=== PATIENT | female | born 1990 | race Caucasian/White ===

== ENCOUNTER 2024-05-02 17:43 | Emergency (ER) | payer BC, SELFPAY ==
[2024-05-02 17:44] VITALS: BP 126/89
--- NOTE | 2024-05-02 18:02 | ED.GENMED ---
History of Present Illness
General
Chief Complaint: Abdominal Symptoms
Source: patient, records and family
Exam Limitations: none
Time Seen by Provider: 05/02/24 17:52
Nursing documentation reviewed up to this point in time: agreed with
Travel History
Have you had any contact with someone who has COVID-19?: No
Do you have any symptoms of coronavirus? Fever > 100 degrees, chills, cough, shortness of breath, sore throat, loss of taste or smell, muscle aches, or headache?: No
History of Present Illness
History of Present Illness:
Patient is a 34-year-old female who presents to the emergency department complaining of nausea vomiting since last night approximately 30 times as well as liquidy diarrhea all day. Patient feels weak and dehydrated. Patient had temperature of
99.4. Patient went to her primary care physician and was referred to the emergency department for dehydration and the fact that she was also tachycardic. Patient has been on prednisone and amoxicillin for the past 2 weeks for root canal in 6 days.
Last month the patient was in [place]. No one else at home is ill. Patient did have the wrap from wall while last night. Patient has diffuse abdominal pain. Patient's period is due in 5 days. Patient denies any symptoms.
Past History
Past History
ED Past Medical History: Arrthythmia (SVT) and Psychiatric (Anxiety)
ED Past Surgical History: None
Social History
Tobacco: Non-smoker
Alcohol: Occasional
Personal: Single
Living: with family
Family History
Family History: Early CAD
Review of Systems
Review of Systems
All Other Systems: ROS reviewed and negative except as documented in HPI and ROS
Constitutional: Reports fever, fatigue and chills
EENT: Reports no symptoms
Respiratory: Reports no symptoms
Cardiac: Reports palpitations
ABD/GI: Reports abdominal pain, nausea, vomiting, diarrhea and anorexia; Denies bloody stools or black stools
: Reports no symptoms
Musculoskeletal: Reports no symptoms
Skin: Reports no symptoms
Neurological: Reports no symptoms
Hematologic/Lymphatic: Reports no symptoms
Phy Exam
Physical Exam
Physical Exam:
Physical Exam
General: mild distress, alert and appropriate, well nourished, dry mucous membranes
HENT: Normocephalic, supple with no lymphadenopathy, no thyromegaly
Eyes: Clear sclera, conjuctiva without injection
Heart: Regular rhythm and tachycardic rate. No S3, S4. No murmur. No NVD
Lungs: No respiratory distress, no stridor, lung sounds clear and equal bilaterally
Abdomen: Soft, mild to moderate diffuse tenderness without guarding or rebound, no organomegaly, no CVA tenderness, BS good
Neuro: Alert and oriented x 3, CN II - XII intact, no motor focality, no cerebellar dysfunction
Skin: no rash
Psychiatric: well kept. interactive and cooperative. Mildly anxious
Extremities: No edema, cyanosis, tenderness, Good and equal peripheral pulses.
Course
Orders/Labs/Results
Orders:
Orders
05/02/24 18:01
0.9% Sodium Chloride 1000 ml [Nss] 1,000 ml IV BOLUS
HYDROmorphone [Dilaudid] 0.5 mg IV NOW STA
Ondansetron Injectable [Zofran] 4 mg IV NOW STA
05/02/24 18:02
Test Result ONCE
05/02/24 18:27
Complete Blood Count/With Diff Urgent
Comprehensive Metabolic Panel Urgent
HCG, Serum Qualitative Screen Urgent
Abnormal Lab Results
05/02/24
18:27
MCH 32.0 H pg
(27.0-31.0)
Absolute Neuts (auto) 6.8 H 10^3/uL
(1.4-6.5)
Absolute Lymphs (auto) 0.9 L 10^3/uL
(1.2-3.4)
Neutrophils % 81.1 H %
(42.2-75.2)
Lymphocytes % 10.7 L %
(20.5-51.1)
Glucose 105 H mg/dl
(70-99)
Total Bilirubin 3.2 H mg/dl
(0.2-1.3)
05/02/24 18:27
05/02/24 18:27
Vital Signs
Initial and Last Documented VS:
Initial Vital Signs
Temp Pulse Resp BP Pulse Ox
98.9 F 123 20 126/89 99
05/02/24 17:44 05/02/24 17:44 05/02/24 17:44 05/02/24 17:44 05/02/24 17:44
Last Documented Vital Signs
Temp Pulse Resp BP Pulse Ox
98.9 F 88 20 116/75 100
05/02/24 17:44 05/02/24 19:15 05/02/24 17:44 05/02/24 19:00 05/02/24 19:00
*Radiology
Radiology exam reviewed: other (na)
*Pulse Oximetry
Patient hypoxic: no
*EKG
Interpreted by ED Provider?: NA
*Coal Handler Interpretation
Rate: Coal Handler- N/A
*Critical Care Note
Total Time (30-74mins, 75-104mins- exclusive of procedures): Not Applicable
Update Note
Update Note:
Patient feeling better. Patient still with vague abdominal discomfort however able to eat and drink. Patient will be discharged and will need follow-up and a recheck of her bilirubin.
ED Attending Note
-
Portions of this chart may have been created with voice recognition software.� Occasional wrong word or��sound alike� substitutions may have occurred due to the inherent limitations of voice recognition software.
Discharge Plan
Departure
Patient Disposition: Home (Routine Discharge)
Date of Disposition: 05/02/24
Time of Disposition: 19:33
Patient with high blood pressure during this ER visit?: No
Condition: Fair
Covid-19: Not Applicable
Discharge Problem:
Acute gastroenteritis, Dehydration
Instructions: Dehydration, Adult (DC), [place] Diet, Nausea and Vomiting, Adult (DC)
Prescriptions:
New
ondansetron 8 mg tablet,disintegrating
8 mg PO TID PRN (Reason: nausea and vomiting) Qty: 30 0RF
oxycodone 5 mg tablet
5 mg PO Q4H PRN (Reason: Pain) Qty: 14 0RF
Referrals:
NONE,* [Family Provider] -
Activity Restrictions/Additional Instructions:
You may use Pedialyte or similar fluids to stay well-hydrated. This is prior to take another 24 to 48 hours to really turn around. I would avoid Advil, ibuprofen, Aleve. Acetaminophen 650 mg to 1000 mg every 6 hours for mild to moderate pain.
Interventions
Interventions:
*Risk Screen - Suicide Last Done: 05/02/24 18:35
*General Assessment Last Done: 05/02/24 18:35
*Neglect/Abuse Screening Last Done: 05/02/24 18:35
ED- Fall Risk Assessment Last Done: 05/02/24 18:35
*ED COVID-19 Vaccine History Last Done: 05/02/24 17:44
XD-Elkqxl-Mlvobjwvtm Assessment Last Done: 05/02/24 18:35
Discharge Date and Time
Print Language: MALAY
[2024-05-02] MEDS: ZOFRAN 4 MG IV (18:24)
[2024-05-02] MEDS: DILAUDID 0.5 MG IV (18:24)
[2024-05-02] MEDS: NSS 1000 IV (18:24)
[2024-05-02 18:29] VITALS: BP 111/75
[2024-05-02 18:35] VITALS: BMI 25.6
[2024-05-02 18:37] LABS: % Basophils 0.2 % (0-2); % Eosinophils 0.2 % (0-6); % Immature Granulocytes 0.2 % (0-0.5); % Lymphocytes 10.7 % (20.5-51.1); % Monocytes 7.6 % (1.7-9.3); % Neutrophils 81.1 % (42.2-75.2); Absolute Lymphocytes 0.9 10^3/uL (1.2-3.4); Absolute Monocytes 0.6 10^3/uL (0.1-0.6); Absolute Neutrophils 6.8 10^3/uL (1.4-6.5); Hematocrit 38.5 % (37.0-47.0); Mean Corp Hgb Conc. 36.4 g/dL (33.0-37.0); Mean Corpuscular Volume 87.9 fL (81.0-99.0); Mean Platelet Volume 9.8 fL (7.4-10.4); Nucleated Red Blood Cells % 0 %; Platelet Count 178 10^3/uL (130-400); Red Blood Cell Count 4.38 10^6/uL (4.20-5.40); Red Cell Dist. Width 12.2 % (11.5-14.5); White Blood Cell Count 8.3 10^3/uL (4.8-10.8)
[2024-05-02 18:52] LABS: HCG, Serum Qualitative Screen Negative
[2024-05-02 18:57] LABS: ALT (SGPT) 15 U/L (0-35); AST (SGOT) 20 U/L (14-36); Albumin 4.2 g/dl (3.5-5.0); Alkaline Phosphatase 47 U/L (38-126); Blood Urea Nitrogen 14 mg/dl (7-17); Calcium 9.2 mg/dl (8.4-10.2); Carbon Dioxide 22 mmol/L (22-30); Chloride 104 mmol/L (98-107); Estimated Creatinine Clearance 115 ml/min; Glucose 105 mg/dl (70-99); Potassium 3.8 mmol/L (3.5-5.1); Sodium 135 mmol/L (135-145); Total Bilirubin 3.2 mg/dl (0.2-1.3); Total Protein 6.7 g/dl (6.3-8.2); eGFR > 60.00
[2024-05-02 19:00] VITALS: BP 116/75
[2024-05-02] MEDS: ZOFRAN ODT (ORALLY DISINTEGRATING) 4 MG PO (19:49)
== END 2024-05-02 20:02 | disposition home or self-care (01) ==
LOC: EMR 17:43
PROVIDERS: EMERGENCY PHYSICIAN Emergency Medicine
DX: K52.9 Noninfective gastroenteritis and colitis, unspecified (principal); E86.0 Dehydration; Z82.49 Family history of ischemic heart disease and other diseases of the circulatory system
CPT/HCPCS: 99283; 96374; 96375; 96361; 80053; 84703; 85025

== ENCOUNTER → 2024-06-20 14:56 | Outpatient (REF) | payer OTHER, SELFPAY | LOC: HWRAD 14:56 | PROVIDERS: ATTENDING PHYSICIAN Specialist; FAMILY PHYSICIAN Family Medicine | DX: R51.9 Headache, unspecified (principal) | CPT/HCPCS: 70470; Q9967 ==

== ENCOUNTER 2024-10-31 19:30 | Emergency (ER) | payer OTHER, SELFPAY ==
[2024-10-31 19:45] VITALS: BP 152/92
--- NOTE | 2024-10-31 19:53 | ED.GENMED ---
ED Provider Triage
<Yaritza García PA-C - Last Filed: 10/31/24 20:01>
-
Patient seen by provider in Triage?: Seen in Triage
Attestation: A medical screening examination has been initiated by a qualified medical provider. Based on the assessment performed at this time, it has been determined that an emergent medical condition may exist and the patient has been informed
that further medical evaluation and possible additional diagnostic testing may be needed.
HPI: 34yoF here with L flank pain radiating to LLQ x several days. Currently 5 weeks . No SOB or pleuritic pain. No vaginal bleeding or urinary symptoms.
GENERAL: Alert , in no apparent distress
EYE: No visual abnormalities.
NECK: Trachea midline
ENT: No visible abnormalities.
LUNGS: No acute respiratory distress
NEUROLOGICAL: Alert and oriented
SKIN: Skin intact. No visible changes.
MUSCULOSKELETAL: Moving extremities normally
PSYCH: Normal and appropriate interaction.
This is a medical evaluation conducted in person to initiate diagnostic evaluation and provide initial therapeutics. Please see further documentation by the treating clinician.
CBC, CMP, quantitative HCG, UA, and renal/pelvic ultrasound.
History of Present Illness
<Yaritza García PA-C - Last Filed: 10/31/24 20:01>
General
Chief Complaint: Abdominal Pain
Time Seen by Provider: 10/31/24 20:50
<Michelle Miranda NP - Last Filed: 11/01/24 01:21>
General
Source: patient
Exam Limitations: none
Nursing documentation reviewed up to this point in time: agreed with
History of Present Illness
History of Present Illness:
34-year-old female with no significant past medical history 0 under the care of a fertility clinic with IUI, states she is 5 weeks and developed left flank pain that radiates into her left lower quadrant initially off and on for the
past 2 days but last night it became constant. She denies vaginal bleeding or discharge. She states pain is now 5/10. She has had 'very dull cramping' across her lower abdomen.
Past History
<Yaritza García PA-C - Last Filed: 10/31/24 20:01>
Past History
ED Past Medical History: Arrthythmia (SVT) and Psychiatric (Anxiety)
ED Past Surgical History: None
Social History
Tobacco: Non-smoker
Alcohol: Occasional
Personal: Single
Living: with family
Family History
Family History: Early CAD
Review of Systems
<Michelle Miranda AUDITING CONTROL CLERK - Last Filed: 11/01/24 01:21>
Review of Systems
Allergies reviewed?: Yes
All Other Systems: ROS reviewed and negative except as documented in HPI and ROS
Constitutional: Denies fever or chills
Respiratory: Denies trouble breathing
Cardiac: Denies chest pain
ABD/GI: Reports abdominal pain; Denies nausea, vomiting, diarrhea or anorexia
: Reports flank pain (Left); Denies dysuria or difficulty voiding
Musculoskeletal: Reports no symptoms
Skin: Reports no symptoms
Neurological: Reports no symptoms
Phy Exam
<Michelle Miranda, AUDITING CONTROL CLERK - Last Filed: 11/01/24 01:21>
Physical Exam
Physical Exam:
GENERAL: No acute distress. A&Ox3.
CONSTITUTIONAL: Afebrile.
EYES: Clear, conjunctivae normal
ENMT: moist mucus membranes, Pharynx nl
RESPIRATORY: Regular respirations, nonlabored, lungs clear.
CARDIOVASCULAR: Regular rate and rhythm, no murmurs, no rubs.
GI: Soft, nontender, normal BS. Mild tenderness left flank to percussion, mild tenderness LLQ
MUSCULOSKELETAL: Moves with ease. Well perfused.
SKIN: Warm, dry, pink
PSYCH: Normal mood and affect. Well kept, interactive and appropriate
NEUROLOGIC: Awake, alert and oriented. No focal neurological deficits
Course
<Yaritza García PA-C - Last Filed: 10/31/24 20:01>
Orders/Labs/Results
Orders:
Orders
10/31/24 19:55
US W Transvaginal Urgent
Reason For Exam: LLQ pain, 5 weeks
US Renal With Bladder Urgent
Comment:
Reason For Exam: L flank pain
10/31/24 20:02
Complete Blood Count/With Diff Urgent
Comprehensive Metabolic Panel Urgent
HCG, Beta Quantitative [Beta HCG Quantitative] Urgent
Is this a screen?: No
Urinalysis Reflex To Culture Urgent
Date Specimen was Collected: 10/31/24
Time Specimen was Collected: 19:57
Abnormal Lab Results
10/31/24
20:02
MCH 32.0 H pg
(27.0-31.0)
Absolute Lymphs (auto) 3.6 H 10^3/uL
(1.2-3.4)
Absolute Monos (auto) 0.8 H 10^3/uL
(0.1-0.6)
Glucose 102 H mg/dl
(70-99)
Total Bilirubin 1.5 H mg/dl
(0.2-1.3)
Urine Ketones 2+ A
(Negative)
10/31/24 20:02
10/31/24 20:02
Vital Signs
Initial and Last Documented VS:
Initial Vital Signs
Temp Pulse Resp BP Pulse Ox
98.5 F 87 16 152/92 99
10/31/24 19:45 18 19:45 10/31/24 19:45 10/31/24 19:45 10/31/24 19:45
Last Documented Vital Signs
Temp Pulse Resp BP Pulse Ox
98.5 F 87 16 123/66 98
10/31/24 19:45 10/31/24 23:18 10/31/24 23:18 10/31/24 23:18 10/31/24 23:18
<Michelle Miranda AUDITING CONTROL CLERK - Last Filed: 11/01/24 01:21>
Orders/Labs/Results
Orders:
Orders
10/31/24 19:55
US W Transvaginal Urgent
Reason For Exam: LLQ pain, 5 weeks
US Renal With Bladder Urgent
Comment:
Reason For Exam: L flank pain
10/31/24 20:02
Complete Blood Count/With Diff Urgent
Comprehensive Metabolic Panel Urgent
HCG, Beta Quantitative [Beta HCG Quantitative] Urgent
Is this a screen?: No
Urinalysis Reflex To Culture Urgent
Date Specimen was Collected: 10/31/24
Time Specimen was Collected: 19:57
Abnormal Lab Results
10/31/24
20:02
MCH 32.0 H pg
(27.0-31.0)
Absolute Lymphs (auto) 3.6 H 10^3/uL
(1.2-3.4)
Absolute Monos (auto) 0.8 H 10^3/uL
(0.1-0.6)
Glucose 102 H mg/dl
(70-99)
Total Bilirubin 1.5 H mg/dl
(0.2-1.3)
Urine Ketones 2+ A
(Negative)
10/31/24 20:02
10/31/24 20:02
Vital Signs
Initial and Last Documented VS:
Initial Vital Signs
Temp Pulse Resp BP Pulse Ox
98.5 F 87 16 152/92 99
10/31/24 19:45 10/31/24 19:45 10/31/24 19:45 10/31/24 19:45 10/31/24 19:45
Last Documented Vital Signs
Temp Pulse Resp BP Pulse Ox
98.5 F 87 16 123/66 98
10/31/24 19:45 10/31/24 23:18 10/31/24 23:18 10/31/24 23:18 10/31/24 23:18
<Michelle Miranda AUDITING CONTROL CLERK - Last Filed: 11/01/24 01:21>
MDM/Problems Addressed
Differential Diagnosis Includes:
Kidney stone, pains in early
MDM/Problems Addressed:
34-year-old female with no significant past medical history 0 under the care of a fertility clinic with IUI, states she is 5 weeks and developed left flank pain that radiates into her left lower quadrant initially off and on for the
past 2 days but last night it became constant. She denies vaginal bleeding or discharge. She states pain is now 5/10. She has had 'very dull cramping' across her lower abdomen.
CBC normal
CMP normal
hCG 1070.60 Pt states she had HCG at out pt lab this a.m. was 1012.0
UA negative
11:20 PM:
Renal ultrasound radiology report read: IMPRESSION:
No shadowing renal calculus, bilaterally. No bladder calculus.
No hydronephrosis. Slight distention of the small left extrarenal pelvis. There are bilateral ureteral jets in the bladder.
ultrasound transvaginal radiology report read: IMPRESSION:
Retroverted uterus with fundal intramural fibroid measuring up to 4.1 cm.
Endometrial thickening of 1.6 cm with central 2.8 mm hypoechoic focus. Possible early gestational sac. Follow-up will be necessary as well as correlation with serial quantitative beta hCG.
Complex solid/cystic mass in the left adnexa adjacent to the left ovary, suspicious for dermoid. Small complex cyst/involuting follicle of the left ovary.
Right ovarian simple cyst measuring 2.3 cm.
No free fluid.
CT results discussed with pt, given copies to discuss with her OB doctor.
<Michelle Miranda AUDITING CONTROL CLERK - Last Filed: 11/01/24 01:21>
*Critical Care Note
Total Time (30-74mins, 75-104mins- exclusive of procedures): Not Applicable
ED Attending Note
<Yaritza García PA-C - Last Filed: 10/31/24 20:01>
-
Portions of this chart may have been created with voice recognition software.� Occasional wrong word or��sound alike� substitutions may have occurred due to the inherent limitations of voice recognition software.
Discharge Plan
Departure
Patient Disposition: Home (Routine Discharge)
Date of Disposition: 10/31/24
Time of Disposition: 23:33
Patient with high blood pressure during this ER visit?: No
Condition: Good
Discharge Problem:
Acute left-sided low back pain, Abdominal pain during
Instructions: Low back pain in adults, Abdominal Pain
Prescriptions:
No Action
progesterone 200 mg
200 mg vaginal BID
Referrals:
Your, OB doctor [Other] - Tomorrow
Wendy Soto DO [Family Provider] -
Activity Restrictions/Additional Instructions:
As we discussed, nothing worrisome in your exam here today.
Tylenol, heating pad may help
Avoid lifting over 5 lbs until the back feels better
Call your OB doctor tomorrow and discuss today's visit including your lab work and your CAT scan results.
Follow up as they request
Interventions
Interventions:
*Risk Screen - Suicide Last Done: 10/31/24 19:45
*General Assessment Last Done: 10/31/24 19:45
*Neglect/Abuse Screening Last Done: 10/31/24 19:45
ED- Fall Risk Assessment Last Done: 10/31/24 21:07
*ED COVID-19 Vaccine History Last Done: 10/31/24 19:45
*Nursing Disposition Last Done: 10/31/24 23:35
ON-Yokodm-Ilgspjyrkd Assessment Last Done: 10/31/24 20:55
Discharge Date and Time
Discharge Date/Time: 10/31/24 23:35
Print Language: SOMALI
[2024-10-31 20:13] LABS: % Basophils 0.4 % (0-2); % Eosinophils 1.5 % (0-6); % Immature Granulocytes 0.2 % (0-0.5); % Neutrophils 51.9 % (42.2-75.2); Absolute Eosinophils 0.1 10^3/uL (0-0.7); Absolute Lymphocytes 3.6 10^3/uL (1.2-3.4); Absolute Monocytes 0.8 10^3/uL (0.1-0.6); Absolute Neutrophils 4.9 10^3/uL (1.4-6.5); Hematocrit 38.2 % (37.0-47.0); Hemoglobin 13.5 g/dL (12.0-16.0); Mean Corp Hgb Conc. 35.3 g/dL (33.0-37.0); Mean Corpuscular Volume 90.5 fL (81.0-99.0); Mean Platelet Volume 9.9 fL (7.4-10.4); Nucleated Red Blood Cells % 0 %; Platelet Count 234 10^3/uL (130-400); Red Blood Cell Count 4.22 10^6/uL (4.20-5.40); White Blood Cell Count 9.5 10^3/uL (4.8-10.8)
[2024-10-31 20:14] LABS: Urine Albumin Negative (Neg - Trace); Urine Bilirubin Negative (Negative); Urine Character Clear (Clear); Urine Color Yellow; Urine Glucose Negative (Negative); Urine Ketone 2+ (Negative); Urine Leukocyte Negative (Negative); Urine Nitrite Negative (Negative); Urine Occult Blood Negative (Negative); Urine Specific Gravity 1.025 (<1.030); Urine Urobilinogen Negative (Neg - 1+)
[2024-10-31 20:25] LABS: ALT (SGPT) 14 U/L (0-35); AST (SGOT) 20 U/L (14-36); Albumin 4.9 g/dl (3.5-5.0); Alkaline Phosphatase 46 U/L (38-126); Blood Urea Nitrogen 11 mg/dl (7-17); Calcium 9.4 mg/dl (8.4-10.2); Carbon Dioxide 24 mmol/L (22-30); Chloride 102 mmol/L (98-107); Glucose 102 mg/dl (70-99); Sodium 136 mmol/L (135-145); Total Bilirubin 1.5 mg/dl (0.2-1.3); Total Protein 7.7 g/dl (6.3-8.2); eGFR > 60.00
[2024-10-31 23:18] VITALS: BP 123/66
== END 2024-10-31 23:35 | disposition home or self-care (01) ==
LOC: EMR 19:30
PROVIDERS: Physician Assistant; EMERGENCY PHYSICIAN Student in an Organized Health Care Education/Training Program; FAMILY PHYSICIAN Family Medicine
DX: O26.891 Other specified pregnancy related conditions, first trimester (principal); R10.9 Unspecified abdominal pain; M54.50 Low back pain, unspecified; Z3A.01 Less than 8 weeks gestation of pregnancy
CPT/HCPCS: 99284; 76770; 76801; 76817; 80053; 81003; 84702; 85025